=== PATIENT | female | born 1995 | race Caucasian/White ===

== ENCOUNTER 2019-04-14 17:41 | Emergency (ER) | payer OTHER ==
[~2019-04-14] VITALS: Ht 162.6 cm; Wt 69.0 kg
[2019-04-14 18:05] VITALS: BP 123/64; PULSE 74; RESP 24; Ht 162.6 cm; Wt 69.0 kg
--- NOTE | 2019-04-14 20:21 | ERD ---
ER Documentation Chief Complaint Chief Complaint LOWER ABDOMINAL PAIN RADIATING TO THE BACK X 2 WEEKS HPI 23-year-old female with no reported past medical surgical history, history of UTIs, presents with complaint of dull lower pelvic discomfort, flank pain, and urinary frequency. She otherwise denies fevers, chills, nausea, vomiting, diarrhea, abdominal pain, vaginal bleeding or discharge. Last menstrual period was about 2 weeks ago reported as normal. Has noticed change in smell of her urine. She believes she has a UTI. She otherwise is without complaint at time of evaluation. ROS All systems reviewed and are negative except as per history of present illness. Medications Home Meds Active Scripts Cephalexin* (Keflex*) 500 Mg Capsule, 500 MG PO BID for 7 Days, CAP Prov:JT LARRY PA-C 04/14/19 Reported Medications [none] No Conflict Check 08/11/13 Allergies Allergies: Coded Allergies: No Known Allergy (Unverified , 04/14/19) PMhx/Soc Medical and Surgical Hx: pt denies Medical Hx, pt denies Surgical Hx Hx Alcohol Use: Yes (SOCIALLY) Hx Substance Use: No Hx Tobacco Use: No Smoking Status: Never smoker FmHx Family History: No diabetes, No coronary disease, No other Physical Exam Vitals Vital Signs Date Temp Pulse Resp B/P (MAP) Pulse Ox O2 O2 Flow FiO2 Time Delivery Rate 04/14/19 97.7 74 24 123/64 99 18:05 (83) Physical Exam I have reviewed the triage vital signs. Const: Well nourished, well developed, appears stated age Eyes: PERRL, no conjunctival injection HENT: NCAT, Neck supple without meningismus CV: RRR, Warm, well-perfused extremities RESP: CTAB, Unlabored respiratory effort GI: soft, non-tender, non-distended, no masses, mild left flank tenderness MSK: No gross deformities appreciated Skin: Warm, dry. No rashes Neuro: grossly non focal Psych: Appropriate mood and affect. Results 24 hrs Laboratory Tests Test 04/14/19 19:50 04/14/19 19:53 04/14/19 19:54 Urine Color STRAW Urine Clarity CLOUDY Urine pH 7.0 Urine Specific Only 1.005 Urine Ketones NEGATIVE mg/dL Urine Nitrite NEGATIVE mg/dL Urine Bilirubin NEGATIVE mg/dL Urine Urobilinogen NEGATIVE mg/dL Urine Leukocyte Esterase 2+ Jacqueline/ul Urine Microscopic RBC 3 /HPF Urine Microscopic WBC 13 /HPF Urine Squamous Epithelial Cells MODERATE /HPF Urine Bacteria FEW /HPF Urine Hemoglobin 2+ mg/dL Urine Glucose NEGATIVE mg/dL Urine Total Protein NEGATIVE mg/dl Bedside Urine pH (LAB) 6.5 Bedside Urine Protein (LAB) Negative Bedside Urine Glucose (UA) Negative Bedside Urine Ketones (LAB) Negative Bedside Urine Blood 2+ Bedside Urine Nitrite (LAB) Negative Bedside Urine Leukocyte Esterase 1+ (L POC Beta HCG, Qualitative NEGATIVE Procedures/MDM Not . Unlikely TOA, Ovarian Torsion, PID, gonorrhea/chlamydia. Low suspicion for Infected Urolithiasis, AAA, Cholecystitis, Pancreatitis, SBO, Appendicitis, or other acute abdomen. ED course: UA with bacteria, 2+ leukocyte esterase, will treat with 7-day course of cephalexin Rx: Keflex 500mg BID for 5 days Disposition: Discharge home. SRP discussed. Advise follow up with primary care provider within 24-72 hours. Departure Diagnosis: Primary Impression: Urinary frequency Condition: Stable Patient Instructions: Urinary Tract Infections in Women Referrals: COMMUNITY CLINICS YOU HAVE RECEIVED A MEDICAL SCREENING EXAM AND THE RESULTS INDICATE THAT YOU DO NOT HAVE A CONDITION THAT REQUIRES URGENT TREATMENT IN THE EMERGENCY DEPARTMENT. FURTHER EVALUATION AND TREATMENT OF YOUR CONDITION CAN WAIT UNTIL YOU ARE SEEN IN YOUR DOCTORS OFFICE WITHIN THE NEXT 1-2 DAYS. IT IS YOUR RESPONSIBILITY TO MAKE AN APPOINTMENT FOR FOLOW-UP CARE. IF YOU HAVE A PRIMARY DOCTOR --you should call your primary doctor and schedule an appointment IF YOU DO NOT HAVE A PRIMARY DOCTOR YOU CAN CALL OUR PHYSICIAN REFERRAL HOTLINE AT IF YOU CAN NOT AFFORD TO SEE A PHYSICIAN YOU CAN CHOSE FROM THE FOLLOWING [facility] CL[facility] [address] [facility] [address] [facility] [address] [facility] [facility] [address] [facility] [address] [facility]. [facility]. [address] Additional Instructions: Call your primary care doctor TOMORROW for an appointment during the next 2-3 days.See the doctor sooner or return here if your condition worsens before your appointment time. JT LARRY PA-C Apr 14, 2019 20:21
[2019-04-14] MEDS ORDERED: CEPH-443 PO (20:38)
== END 2019-04-14 20:46 | disposition home or self-care (01) ==
LOC: FTE 17:41
DX: R35.0 Frequency of micturition (principal); R10.2 Pelvic and perineal pain
CPT/HCPCS: 81001; 81025; Z7502; 81003; 99283

== ENCOUNTER 2019-04-21 13:43 | Emergency (ER) | payer OTHER ==
[~2019-04-21] VITALS: Ht 160 cm; Wt 78.9 kg
[~2019-04-21 13:43] MED LIST: CEPH-443 PO
[2019-04-21 13:50] VITALS: Ht 160 cm; Wt 78.9 kg
[2019-04-21] MEDS ORDERED: KETOROLAC 60 MG INJ IM STA (15:24)
--- NOTE | 2019-04-21 15:45 | ERD ---
ER Documentation Chief Complaint Chief Complaint CP X 3 DAYS HPI This is a 23-year-old female with a nonsignificant past medical history presents ED with complaints of anterior chest pain x3 days. Patient states that the chest pain is constant and she describes it as a burning sharp sensation and rates it at a 7 out of 10. Patient states that the pain is aggravated by drinking coffee and with palpation. Denies any alleviating factors. has not tried taking any medications for pain. Patient was seen here recently and diagnosed with UTI and is currently taking Keflex antibiotic. Almost finished with full course of antibiotics. no recent respiratory infection. Patient denies any fevers, chills, nausea, vomiting, diarrhea, constipation, abdominal pain, cough, sputum production, congestion, runny nose, sore throat, trouble breathing, pleuritic chest pain, leg swelling, leg pain. Patient denies cardiac risk factors including: hypertension, diabetes mellitus, hypercholesterolemia, physical inactivity, smoking, hx of CAD, and prior stress/cath. Patient denies PE risk factors including recent surgery/immobilization, smoking, prior hx of DVT, coagulopathy, hx of cancer, exogenous estrogen use, one sided lower extremity swelling, and lower extremity pain ROS All systems reviewed and are negative except as per history of present illness. Medications Home Meds Active Scripts Cephalexin* (Keflex*) 500 Mg Capsule, 500 MG PO BID for 7 Days, CAP Prov:JT LARRY PA-C 04/14/19 Reported Medications [none] No Conflict Check 08/11/13 Allergies Allergies: Coded Allergies: No Known Allergy (Unverified , 04/14/19) PMhx/Soc Hx Alcohol Use: Yes (SOCIALLY) Hx Substance Use: No Hx Tobacco Use: No FmHx Family History: No diabetes Physical Exam Vitals Vital Signs Date Temp Pulse Resp B/P (MAP) Pulse Ox O2 O2 Flow FiO2 Time Delivery Rate 04/21/19 76 18 122/70 100 Room Air 16:09 (87) 04/21/19 98.1 80 18 128/79 99 13:50 (95) Physical Exam Physical Exam Vitals signs: Reviewed by me. General: Well developed, well nourished, in no acute distress. Patient is awake and alert. Head: Normocephalic, atraumatic. Eyes: Normal conjunctiva, Pupils PERRLA, EOM intact grossly ENT: Pharynx is clear, Moist mucous membranes, external ears, nose and mouth normal Neck: Supple, no masses, lymphadenopathy or JVD Chest: No increased AP diameter, no flail chest, mild tenderness palpation along the sternal area Respiratory: Clear to auscultation bilaterally with no wheezing, rhonchi, rales, no distress Cardiovascular: RRR, no murmurs, rubs, or gallops Abdominal: Soft, non-tender, non-distended, no peritoneal signs : Deferred MSK: No edema, no unilateral swelling, 5/5 strength Back: No midline tenderness. No flank tenderness Neurologic: Alert and oriented, moving all extremities, normal speech, no focal weakness, no cerebellar signs. Normal mentation Skin: warm and dry, No rash Psych: Normal mood Result Diagram: 04/21/19 1602 04/21/19 1602 Results 24 hrs Laboratory Tests Test 04/21/19 16:02 04/21/19 16:07 White Blood Count 8.4 10^3/ul Red Blood Count 4.81 10^6/ul Hemoglobin 14.2 g/dl Hematocrit 41.7 % Mean Corpuscular Volume 86.7 fl Mean Corpuscular Hemoglobin 29.5 pg Mean Corpuscular Hemoglobin Concent 34.1 g/dl Red Cell Distribution Width 12.9 % Platelet Count 301 10^3/UL Mean Platelet Volume 10.3 fl Immature Granulocytes % 0.400 % Neutrophils % 53.2 % Lymphocytes % 32.8 % Monocytes % 5.9 % Eosinophils % 7.1 % Basophils % 0.6 % Nucleated Red Blood Cells % 0.0 /100WBC Immature Granulocytes # 0.030 10^3/ul Neutrophils # 4.5 10^3/ul Lymphocytes # 2.8 10^3/ul Monocytes # 0.5 10^3/ul Eosinophils # 0.6 10^3/ul Basophils # 0.1 10^3/ul Nucleated Red Blood Cells # 0.0 10^3/ul Sodium Level 145 mmol/L Potassium Level 4.5 mmol/L Chloride Level 105 mmol/L Carbon Dioxide Level 27 mmol/L Anion Gap 13 Blood Urea Nitrogen 7 mg/dl Creatinine 0.57 mg/dl Est Glomerular Filtrat Rate mL/min > 60 mL/min Glucose Level 88 mg/dl Calcium Level 10.2 mg/dl Troponin I < 0.012 ng/ml POC Beta HCG, Qualitative NEGATIVE Current Medications Medications Dose Sig/Herminia Start Time Status Last (Trade) Ordered Route PRN Stop Time Admin Dose Reason Admin Ketorolac 60 mg ONCE STAT 04/21/19 DC 04/21/19 Tromethamine IM 15:24 16:13 (Toradol) 04/21/19 15:26 Procedures/MDM EKG, MONITORS, & DIAGNOSTIC IMAGIng EKG read by sean: Rate/Rhythm: Regular rate and rhythm at a rate of 64 Intervals: Normal Impression: No evidence of ischemia or arrhythmia [place] [address] Radiology Main Line: [phone] DIAGNOSTIC IMAGING REPORT Patient: SHERRELL DEXTER : 1995 Age: 23 Sex: F MR #: [id number] DOS: 04/21/19 1524 Ordering MD: SRI DEL CID PA-C Location: [facility] Room/Bed: PROCEDURE: XR Chest. CLINICAL INDICATION: Chest Pain. TECHNIQUE: Portable AP view of the chest was obtained. COMPARISON: CR CHEST 08/11/2013 FINDINGS: The cardiomediastinal silhouette is within normal limits. The lungs are clear. No signs of pleural fluid or pneumothorax are seen. The osseous structures and soft tissues are unremarkable. IMPRESSION: No evidence for active cardiopulmonary disease. RPTAT:AAJJ Physician Silverio Date Time Electronically viewed and signed by Physician Silverio on 04/21/2019 16:59 RF/ CC: SRI DEL CID PA-C [id number] LAB INTERPRETATION: CBC shows no evidence of hemorrhage or infection Chemistry shows no evidence of significant electrolyte abnormalities or renal insufficiency Cardiac biomarkers show no evidence of acute myocardial injury or coronary ischemia urine preg neg ER COURSE: The patient was given Toradol The medication was well tolerated and the patient reports improvement in symptoms. The patient was stable throughout ED course. I kept the patient and/or family informed of laboratory and diagnostic imaging results throughout the emergency room course. The patient was promptly evaluated and a treatment plan was devised based on H&P and other data. This plan was discussed with the patient who agreed and had no further questions or concerns prior to discharge. MEDICAL DECISION MAKING: This is a 23-year-old female presents ED with complaints of chest pain x3 days. The patient presents with chest pain and I considered GERD, anxiety, costochondritis, endocarditis pulmonary embolism, acute coronary syndrome, STEMI, and STEMI, pericarditis, aortic dissection, pneumothorax, tension pneumothorax, pneumonia, pleural effusion, among other diagnoses. Per the perc criteria pulmonary embolism can be ruled out. Patient is low risk for PE by well's criteria with the score of 0. Patient also does not have any risk factors for pulmonary embolism. Chest x-ray is unremarkable. EKG is also unremarkable. Evaluation for acute coronary syndrome was performed. The HEART score (www.mdcalc.com <http://www.mdcalc.com>) was utilized for risk stratification and found to be 0. Based on this evaluation the patients risk of major adverse cardiac events is <1%. Given that pain is worsened with palpation this is likely a costochondritis. Patient was given Toradol in the emergency department reports improvement in pain. History and physical examination other data not consistent with emergent processes including lung not limited to endocarditis, acute coronary syndrome, pulmonary embolism, pneumonia, pleural effusion, pneumothorax, tension pneumothorax, aortic dissection, esophageal rupture, among others. Patient vitals are stable and patient can be managed with close outpatient follow. patient advised to follow up with primary care in the next 48 hours. return to ed with any worsening symptoms DISPOSITION PLAN: We discussed follow up with the patient's primary care doctor within 24 to 48 hours. Patient counseled regarding my diagnostic impression and care plan. Prior to discharge all questions answered. Pt agrees with treatment plan and understands strict return precautions. Precautionary instructions provided including instructions to return to the ER if not improving or for any worsening or changing symptoms or concerns. SPECIALIST FOLLOW UP RECOMMENDED: None Patient has been advised to follow up with primary care in 1-2 days. Disclaimer: Inadvertent spelling and grammatical errors are likely due to EHR/dictation software use and do not reflect on the overall quality of patient care. Also, please note that the electronic time recorded on this note does not necessarily reflect the actual time of the patient encounter. Blood Pressure Assessment: Patient's blood pressure was elevated (>120/80) but appears stable without evidence of hypertension emergency or urgency. The patient was counseled about the risks of hypertension and urged to pursue outpatient monitoring and therapy within a week with their primary care physician. Departure Diagnosis: Primary Impression: Chest pain Chest pain type: unspecified Qualified Codes: R07.9 - Chest pain, un specified Condition: Stable Patient Instructions: Chest Pain, Noncardiac , Chest Pain, Uncertain Cause, Chest Wall Pain, Costochondritis Referrals: COMM[facility]ITY CLINICS Additional Instructions: Patient advised to return to the ED immediately for new or worsening symptoms. Patient advised to follow up with primary care provider in the next 24-48 hours. Patient verbalized understanding and agrees with treatment plan and course of action. If patient has no primary care they may follow up with one of the community clinics listed on the following page or one of the options listed below [facility] + [facility] [address] [place] [id number] or [facility] [address] [place] [address] or [facility] [address] [place] [address] SRI DEL CID PA-C Apr 21, 2019 15:45
[2019-04-21] MEDS ORDERED: IBUP-1542 PO (17:03)
[2019-04-21 17:13] VITALS: BP 122/78; PULSE 63; RESP 16
== END 2019-04-21 17:13 | disposition home or self-care (01) ==
LOC: FTE 13:43
DX: R07.89 Other chest pain (principal)
CPT/HCPCS: 36415; 71045; 80048; 81025; 84484; 85025; 93005; 96372; J1885; Z7502